=== PATIENT | male | born 1990 | race Caucasian/White ===

== ENCOUNTER 2017-09-27 22:50 | Emergency (ER) | payer SELFPAY ==
[~2017-09-27] VITALS: Ht 167.6 cm; Wt 79.4 kg
[2017-09-27 23:07] VITALS: BP 116/79
--- NOTE | 2017-09-27 23:16 | NUR ---
TO LOBBY, AMB, VSS, EKG NSR, ERMD NOTED
--- NOTE | 2017-09-28 00:38 | NUR ---
PT AMBULATED TO BED 1
[2017-09-28] MEDS ORDERED: DICYCLOMINE HCL LIQUID 20 MG, ALUMINUM HYD/MAG/SIMETHICONE 30 ML, LIDOCAINE VISCOUS 2% ... PO ONE ×3 (01:40)
[2017-09-28] MEDS ORDERED: FAMOTIDINE 20 MG TAB PO ONE (01:45)
[2017-09-28 02:07] LABS: BASOPHILS # (AUTO) 0.4 K/uL (0.00-0.22); BASOPHILS % (AUTO) 4.7 % (0.0-2.0); EOSINOPHILS # (AUTO) 0.4 K/uL (0-0.4); EOSINOPHILS % (AUTO) 4.4 % (0.0-4.0); HEMATOCRIT 44.1 % (36-52); HEMOGLOBIN 14.4 g/dL (12.0-18.0); LYMPHOCYTES # (AUTO) 3.6 K/uL (2.0-11.5); LYMPHOCYTES % (AUTO) 38.3 % (20.5-51.1); MEAN CORPUSCULAR HEMOGLOBIN 28 pg (27-31); MEAN CORPUSCULAR HGB CONC 33 g/dL (33-37); MEAN CORPUSCULAR VOLUME 85 fL (80-94); MONOCYTES # (AUTO) 0.6 K/uL (0.8-1.0); MONOCYTES % (AUTO) 6.2 % (1.7-9.3); NEUTROPHILS # (AUTO) 4.4 K/uL (1.8-7.7); NEUTROPHILS % (AUTO) 46.4 % (42.2-75.2); PLATELET COUNT (AUTO) 320 K/uL (140-450); RED CELL DISTRIBUTION WIDTH 12.2 % (11.6-13.7); WHITE BLOOD COUNT (AUTO) 9.4 K/uL (4.8-10.8)
[2017-09-28 02:25] LABS: ANION GAP 14.2 (8-16); CARBON DIOXIDE 25.8 mmol/L (21-32); CREATININE 0.9 mg/dL (0.7-1.3); TOTAL BILIRUBIN 0.3 mg/dL (0.0-1.0)
--- NOTE | 2017-09-28 02:35 | NUR ---
Patient discharged with v/s stable. Written and verbal after care instructions given and explained. Patient alert, oriented and verbalized understanding of instructions. Ambulatory with steady gait. All questions addressed prior to discharge. ID band removed. Patient advised to follow up with PMD. Rx of pepcid 20mg given. Patient educated on indication of medication including possible reaction and side effects. Opportunity to ask questions provided and answered.
[2017-09-28 03:08] VITALS: BP 111/75
== END 2017-09-28 02:35 | disposition home or self-care (01) ==
LOC: MED 22:50
DX: K21.9 Gastro-esophageal reflux disease without esophagitis (principal); K29.70 Gastritis, unspecified, without bleeding
CPT/HCPCS: 36415; 71045; 80053; 83690; 85025; 93005; 99285

== ENCOUNTER 2021-03-25 20:48 | Emergency (ER) | payer MEDICAID, OTHER ==
[~2021-03-25] VITALS: Ht 172.7 cm; Wt 88.5 kg
[2021-03-25 21:14] VITALS: BP 135/93
[2021-03-25] MEDS ORDERED: KETOROLAC 60 MG/2 ML VIAL IM ONE (23:00)
[2021-03-25] MEDS ORDERED: CYCLOBENZAPRINE 10 MG TAB PO ONE (23:00)
[2021-03-26] MEDS ORDERED: MELO-174 PO (01:03)
[2021-03-26] MEDS ORDERED: CYCL-711 PO (01:03)
[2021-03-26 01:21] VITALS: BP 122/69
== END 2021-03-26 01:21 | disposition home or self-care (01) ==
LOC: MED 20:48
DX: M54.12 Radiculopathy, cervical region (principal)
CPT/HCPCS: 72050; 96372; 99283; J1885

== ENCOUNTER 2022-06-21 10:18 | Emergency (ER) | payer OTHER ==
[~2022-06-21] VITALS: Ht 175.3 cm; Wt 70.3 kg
[~2022-06-21 10:18] MED LIST: CYCL-711 PO; MELO-174 PO
[2022-06-21 10:44] VITALS: BP 128/74
[2022-06-21] MEDS ORDERED: KETOROLAC 30 MG/ML VIAL IM ONE (12:05)
[2022-06-21] MEDS ORDERED: HYDROcodone/APAP 5/325 MG 1 TAB TAB PO ONE (12:05)
--- NOTE | 2022-06-21 12:30 | NUR ---
32/M PRESENTS TO ED WITH C/O RIGHT KNEE PAIN S/P TRIP AND FALL YESTERDAY. DENIES HEAD OR NECK INJURY, DENIES LOC. PATIENT DENIES TAKING MEDS FOR PAIN, DENIES NUMBNESS OR TINGLING.
[2022-06-21] MEDS ORDERED: IBUP-2213 PO (12:48)
[2022-06-21] MEDS ORDERED: ACET-10509 PO (12:48)
[2022-06-21 13:42] VITALS: BP 128/74
--- NOTE | 2022-06-21 13:42 | NUR ---
Patient discharged with v/s stable. Written and verbal after care instructions ABOUT KNEE SPRAIN given and explained. Patient alert, oriented and verbalized understanding of instructions. Ambulatory with USE OF CRUTCHES. All questions addressed prior to discharge. ID band removed. Patient advised to follow up with PMD. Rx of TYLENOL EXTRA STRENGTH AND IBUPROFEN given. Patient educated on indication of medication including possible reaction and side effects. Opportunity to ask questions provided and answered.
== END 2022-06-21 13:42 | disposition home or self-care (01) ==
LOC: MED 10:18
DX: S83.91XA Sprain of unspecified site of right knee, initial encounter (principal); W18.30XA Fall on same level, unspecified, initial encounter; Y93.89 Activity, other specified; Y92.89 Other specified places as the place of occurrence of the external cause; Y99.8 Other external cause status
CPT/HCPCS: 29505; 73562; 96372; 99283; J1885